=== PATIENT | female | born 1985 | race Caucasian/White ===

== ENCOUNTER 2018-02-07 06:08 | Inpatient (IN) | payer MEDICAID ==
[2018-02-07] MEDS ORDERED: REGLAN IV ONE (06:17)
[2018-02-07] MEDS ORDERED: PEPCID IV ONE (06:17)
[2018-02-07] MEDS ORDERED: BICITRA PO ONE (06:17)
[2018-02-07 06:48] LABS: Basophils % (Auto) 0.3 % (0.0-1.8); Eosinophils % (Auto) 0.4 % (0.0-4.3); Hemoglobin 12.9 gm/dl (10.1-14.3); Lymphocytes % (Auto) 21.9 % (13.4-35.0); Mean Corpuscular HGB Conc 33 % (30-34); Mean Corpuscular Hemoglobin 28 pg (28-32); Mean Corpuscular Volume 85 fl (79-97); Monocytes # (Auto) 0.6 K/mm3 (0.0-0.8); Monocytes % (Auto) 6.1 % (0.0-7.3); Platelet Count 242 K/mm3 (140-440); Red Blood Count 4.61 M/mm3 (3.65-5.03); Red Cell Distribution Width 15.7 % (13.2-15.2)
[2018-02-07] MEDS ORDERED: ANCEF/STERILE WATER 2 GM/20 ML 2 GM/20 ML SYRINGE IV NR (07:00)
[2018-02-07] MEDS ORDERED: PITOCin/NS 20 UNIT/1000ML DRIP 20 UNITS/1,000 ML BAG IV SCH ×2 (07:00→10:00)
[2018-02-07] MEDS ORDERED: LACTATED RINGERS 1,000 ML IV SCH (07:00)
[2018-02-07] MEDS ORDERED: SUBLIMAZE ONE (07:24)
[2018-02-07] MEDS ORDERED: NEO SYNEPHRINE/NS Syringe(OR USE) IV ONE (07:24)
[2018-02-07] MEDS ORDERED: LACTATED RINGERS 1,000 ML ONE (07:56)
--- NOTE | 2018-02-07 08:03 | History and Physical Report ---
History of Present Illness Date of examination: 02/07/18 Date of admission: 02/07/18 06:08 Chief complaint: Repeat C Section History of present illness: Pt is a 32yo WF EDC 02/10/18; EGA 39 4/7 weeks presents for a repeat C Section. She received care at [facility] since13 weeks and course has been unremarkable except for Obesity and previous C Section. records are available and GBS is Negative. Past History Past Medical History: no pertinent history Past Surgical History: section Family/Genetic History: diabetes Social history: no significant social history, - Obstetrical History Expected Date of Delivery: 02/10/18 Actual Gestation: 39 Week(s) 4 Day(s) : 3 Medications and Allergies Allergies Allergy/AdvReac Type Severity Reaction Status Date / Time No Known Allergies Allergy Unverified 02/07/18 06:17 Active Meds: Active Medications Cefazolin Sodium (Ancef/Sterile Water 2 Gm/20 Ml) 2 gm in 20 mls @ 80 mls/hr IV PREOP NR; Protocol Stop: 02/07/18 23:59 Lactated Ringer's (Lactated Ringers) 1,000 mls @ 2,250 mls/hr IV PREOP BALDEMAR Stop: 02/08/18 07:27 Oxytocin/Sodium Chloride (Pitocin/Ns 20 Unit/1000ml Drip) 20 units in 1,000 mls @ 0 mls/hr IV TITR BALDEMAR Review of Systems All systems: negative - Vital Signs Vital signs: Vital Signs Pulse BP 100 H 122/65 02/07/18 06:22 02/07/18 06:22 Temp Pulse Resp BP Pulse Ox 98.3 F 100 H 18 122/65 02/07/18 06:57 02/07/18 06:57 02/07/18 06:57 02/07/18 06:57 - Physical Exam Breasts: Positive: deferred Cardiovascular: Regular rate Lungs: Positive: Clear to auscultation Abdomen: Positive: normal appearance Genitourinary (Female): Positive: normal external genitalia Uterus: Positive: enlarged Extremities: Positive: normal - Obstetrical FHR: category 1 Uterine Contraction Monitor Mode: External Results Result Diagrams: 02/07/18 06:30 Abnormal lab results 02/07/18 Range/Units 06:30 RDW 15.7 H (13.2-15.2) % Seg Neutrophils % 71.3 H (40.0-70.0) % All other labs normal. Assessment and Plan - Patient Problems (1) 39 weeks gestation of Onset Date: 02/07/18 Current Visit: Yes Status: Acute Plan to address problem: A: IUP @ 39 4/7 weeks Previous C Section P: Admit to L&D for a Repeat C Section (2) Previous section Onset Date: 02/07/18 Current Visit: Yes Status: Acute
[2018-02-07] MEDS ORDERED: ZOFRAN ONE (08:20)
[2018-02-07] MEDS ORDERED: WATER FOR IRRIG STERILE IR ONE (08:30)
[2018-02-07] MEDS ORDERED: NACL 0.9% IR ONE (08:30)
[2018-02-07] MEDS ORDERED: MORPHINE ONE (09:04)
[2018-02-07] MEDS ORDERED: NARCAN 0.4 MG/1 ML IV PRN ×2 (09:13→09:36)
[2018-02-07] MEDS ORDERED: TUCKS PAD TP PRN (09:13)
[2018-02-07] MEDS ORDERED: MYLICON PO PRN (09:13)
[2018-02-07] MEDS ORDERED: ZOFRAN IV PRN (09:13)
[2018-02-07] MEDS ORDERED: SENOKOT PO PRN (09:13)
[2018-02-07] MEDS ORDERED: MILK OF MAGNESIA PO PRN (09:13)
[2018-02-07] MEDS ORDERED: LANSINOH TP PRN (09:13)
[2018-02-07] MEDS ORDERED: TORADOL IV PRN (09:13)
[2018-02-07] MEDS ORDERED: NORCO 5/325 PO PRN (09:13)
[2018-02-07] MEDS ORDERED: TYLENOL PO PRN (09:13)
[2018-02-07] MEDS ORDERED: NUBAIN IV PRN (09:36)
--- NOTE | 2018-02-07 09:36 | Anesthesia Day of Surgery ---
Anesthesia Day of Surgery - Day of Surgery Patient Examined: Yes Patient H&P Reviewed: Yes Patient is NPO: Yes
--- NOTE | 2018-02-07 09:36 | Anesthesia Consultation ---
Anesthesia Consult and Med Hx Date of service: 02/07/18 - Airway Anesthetic Teeth Evaluation: Good ROM Head & Neck: Adequate Mental/Hyoid Distance: Adequate Mallampati Class: Class III Intubation Access Assessment: Possibly Difficult - Pulmonary Exam CTA: Yes - Cardiac Exam Cardiac Exam: RRR - Pre-Operative Health Status ASA Pre-Surgery Classification: ASA2 Proposed Anesthetic Plan: Epidural, Spinal - Pulmonary Hx Smoking: No Hx Asthma: No Hx Respiratory Symptoms: No - Cardiovascular System Hx Hypertension: No Hx Heart Attack/AMI: No - Central Nervous System Hx Neuromuscular Disorder: No Hx Seizures: No CVA: No - Endocrine Hx Renal Disease: No Hx Liver Disease: No Hx Insulin Dependent Diabetes: No Hx Thyroid Disease: No - Other Systems Hx Obesity: Yes - Additional Comments Anesthesia Medical History Comments: Hx x1 scheduled for repeat c- section.
--- NOTE | 2018-02-07 09:52 | Operative Report ---
Operative Report Operative Report: Date of procedure: 02/07/2018 Pre-operative diagnosis: 1. Intrauterine at 39-4/7 weeks 2. Previous 3. Obesity Post-operative diagnosis: Same Procedure name(s): Repeat low transverse section Surgeon: Paul Chery MD Wool Mixer: None Anesthesia: Spinal anesthesia by Dr. Prather EBL: 500 mL's Findings: A 3586 g female infant Apgars 8 at 1 minute 9 at 5 minutes. Clear amniotic fluid. Normal uterus. Normal tubes and ovaries bilaterally. Procedure: After the patient was prepped and draped in usual sterile fashion, and after satisfactory level of epidural anesthesia was obtained, the skin knife was used to make a transverse skin incision through the previous skin scar. The incision was excised down to layer of the fascia, which was nicked in the midline and extended laterally using the Bovie cautery. The rectus muscles were dissected off the rectus fascia both superiorly and inferiorly. The rectus bellies in the midline, and the peritoneum was entered under direct visualization. The peritoneal incision was extended superiorly and inferiorly. A bladder flap was created and the bladder blade was then placed. The uterus was scored in a curvilinear linear fashion, entered in the midline revealing clear amniotic fluid. The infant's head was delivered onto the surgical field with the aid of a vacuum, and the oropharynx and nasopharynx were bulb suctioned. The rest of the infant's body was delivered, cord was doubly clamped and cut and the infant was handed to the waiting respiratory team. The placenta was manually removed from the uterus, and the uterus removed from its normal anatomical position. After gentle uterine lavage, the incision was inspected and found to be without extensions. It was then closed in 2 layers using 0 Vicryl suture in a running interlocking fashion, the second layer imbricating the first. After good hemostasis was achieved, copious amounts or irrigation was performed, and the gutters were suctioned free of blood and blood clots. The Tisseel sealant was sprayed across the uterine incision. The uterus was then returned to its normal anatomical position, and after excellent hemostasis assured, the peritoneum was re-approximated using 3- 0 Vicryl suture in a running interlocking fashion, and then the rectus muscles were re-approximated using 3-0 Vicryl suture in a [id number] configuration. The fascia was then re-approximated using 0 Vicryl suture in running interlocking fashion. The subcutaneous layer was made hemostatic using Bovie cautery, the Tisseel sealant was sprayed across the fascial incision and the skin edges re-approximated using 4-0 Vicryl suture in a sub-cuticular fashion. Patient tolerated the procedure well was transported to recovery in stable condition.
[2018-02-07] MEDS ORDERED: SODIUM CHLORIDE FLUSH SYRINGE 10 ML IV NR (10:00)
[2018-02-07] MEDS ORDERED: TYLENOL PO SCH (12:00)
[2018-02-07] MEDS ORDERED: BENADRYL IV PRN (12:27)
[2018-02-07] MEDS: TORADOL IV SCH ×2 (12:32→17:40)
[2018-02-07] MEDS: D5LR 1,000 ML IV SCH (17:50)
[2018-02-07] MEDS: ANCEF/NS 1 GM/50 ML 1 GM/50 ML BAG IV SCH (19:52)
[2018-02-07 21:53] LABS: Hematocrit 38.8 % (30.3-42.9); Hemoglobin 12.6 gm/dl (10.1-14.3)
[2018-02-08] MEDS: TORADOL IV SCH
[2018-02-08] MEDS: D5LR 1,000 ML IV SCH (01:06)
[2018-02-08] MEDS: ANCEF/NS 1 GM/50 ML 1 GM/50 ML BAG IV SCH (03:57)
[2018-02-08] MEDS ORDERED: M-M-R II VACCINE SUB-Q ONE (06:00)
[2018-02-08] MEDS ORDERED: BOOSTRIX IM ONE (06:00)
[2018-02-08] MEDS: PRENATAL VITAMIN PO SCH (08:21)
[2018-02-08] MEDS: FEOSOL PO SCH (08:21)
[2018-02-08] MEDS: MOTRIN PO PRN (08:22)
--- NOTE | 2018-02-08 13:53 | Progress Note ---
Assessment and Plan A: /postop day 1. Anemia. P: Encouraged ambulation. Continue iron supplementation. Subjective - Subjective Date of service: 02/08/18 Principal diagnosis: /postop day 1 Interval history: /postop day 1 S/P LTCS. Doing well. Patient reports she is voiding without difficulty and ambulating well. Passing flatus. Tolerating a regular diet without nausea or vomiting. Patient denies headache, visual disturbance, cough, shortness of breath, chest pain, dizziness, abdominal pain, leg pain, or heavy bleeding. Patient reports: appetite normal, voiding normally, pain well controlled, flatus , ambulating normally : doing well Objective - Vital Signs Latest vital signs: Vital Signs Temp Pulse Resp BP BP Pulse Ox 02/08/18 08:00 97 F L 95 H 18 106/60 02/08/18 04:45 91 H 18 106/56 02/08/18 00:42 98.5 F 75 18 103/56 96 02/08/18 00:00 16 02/07/18 20:40 98.1 F 84 22 101/59 89 02/07/18 17:40 20 02/07/18 15:04 98.1 F 94 H 18 105/54 Intake and Output 02/07/18 02/08/18 02/08/18 23:59 07:59 15:59 Intake Total 50 1208.333 Output Total 900 Balance 50 308.333 Intake: IV 50 908.333 ANCEF/NS 1 GM/50 ML 1 gm 50 In 50 ml @ 100 mls/hr IV Q8H BALDEMAR Rx#:[id number] D5lr 1,000 ml @ 125 mls/ 908.333 hr IV DIRECT BALDEMAR Rx#: [id number] Intake, Free Water 300 Output: Urine 900 Indwelling Catheter 900 Other: Total, Output Amount 900 # Voids Void 1 - Exam Cardiovascular: Present: Regular rate, Normal S1, Normal S2 Lungs: Present: Clear to auscultation Abdomen: Present: normal appearance, soft, normal bowel sounds. Absent: distention, tenderness, guarding Uterus: Present: normal, firm, fundal height below umbilicus. Absent: bogginess , tenderness Extremities: Present: normal. Absent: tenderness, edema Incision: Present: normal, dry, intact, dressed
[2018-02-08] MEDS: PERCOCET 5/325 PO PRN (15:52)
[2018-02-09] MEDS: PERCOCET 5/325 PO PRN ×2 (02:03→11:30)
[2018-02-09] MEDS: MOTRIN PO PRN ×3 (02:03→18:00)
[2018-02-09] MEDS: PRENATAL VITAMIN PO SCH (10:33)
[2018-02-09] MEDS: FEOSOL PO SCH (10:33)
[2018-02-09] MEDS ORDERED: BOOSTRIX IM ONE (12:00)
[2018-02-09 17:12] VITALS: BP 112/64
--- NOTE | 2018-02-09 19:09 | Progress Note ---
Assessment and Plan A: /postop day 2 S/P repeat LTCS. P: Discharge patient home today. Discussed discharge instructions and warning signs in detail with patient. Advised pt. to rest at home and avoid IC, avoid lifting and heavy housework, avoid driving. Advised pt. to follow up with Dr. Chery in 1 week. Advised pt. to continue to take vitamin and iron supplement at home. Pt. voiced understanding of all instructions. Subjective - Subjective Date of service: 02/09/18 Principal diagnosis: /postop day 2 Interval history: /postop day 2 S/P repeat LTCS. Doing well. Desires discharge today. Patient reports small amount of lochia. She is . She is undecided re: control. Patient reports she is voiding without difficulty and ambulating well. Passing flatus and had a BM. Tolerating a regular diet without nausea or vomiting. Patient denies headache, visual disturbance, cough, shortness of breath, chest pain, dizziness, abdominal pain, leg pain, or heavy bleeding. Patient reports: appetite normal, voiding normally, pain well controlled, flatus , ambulating normally : doing well Objective - Vital Signs Latest vital signs: Vital Signs Temp Pulse Resp BP 02/09/18 18:00 18 02/09/18 16:43 97.9 F 73 18 112/64 02/09/18 11:30 18 02/09/18 08:22 98.2 F 88 18 103/60 02/09/18 00:00 98.7 F 79 18 104/79 Intake and Output 02/09/18 02/09/18 02/09/18 07:59 15:59 23:59 Intake Total 300 Balance 300 Intake: Intake, Free Water 300 - Exam Cardiovascular: Present: Regular rate, Normal S1, Normal S2, No murmurs Lungs: Present: Clear to auscultation Abdomen: Present: normal appearance, soft, normal bowel sounds. Absent: distention, tenderness, guarding, rigidity Uterus: Present: normal, firm, fundal height below umbilicus. Absent: bogginess , tenderness Extremities: Present: normal. Absent: tenderness, edema Incision: Present: normal, dry, intact
--- NOTE | 2018-02-09 19:11 | Discharge Summary ---
Providers - Providers Date of Admission: 02/07/18 06:08 Date of discharge: 02/09/18 Attending physician: LANCE CORREIA None Primary care physician: LANCE CORREIA Hospitalization Reason for admission: section Delivery: Procedure: section Incision: normal, dry, intact Other procedures: none complications: none Discharge diagnosis: IUP at term delivered baby: female Pertinent studies: Labs Hospital course: Normal hospital course Condition at discharge: Good Disposition: DC-01 TO HOME OR SELFCARE - Discharge Diagnoses (1) Term delivered Status: Acute Plan - Discharge Medications Prescriptions: Ferrous Sulfate [Feosol 325 MG tab] 325 mg PO BID #60 tablet HYDROcodone/APAP 5-325 [[place] 5/325] 1 each PO Q6HR PRN #30 tablet PRN Reason: Pain Ibuprofen [Motrin] 800 mg PO Q8HR PRN #30 tablet PRN Reason: Moder Pain Unrelieved By [place] Vit Calc,Iron,Folic [ Vitamins] 1 each PO DAILY #30 tablet - Provider Discharge Summary Activity: routine, no sex for 6 weeks, no heavy lifting 4 weeks, no strenuous exercise Diet: routine Instructions: routine Additional instructions: Call your doctor immediately for: * Fever > 100.5 * Heavy vaginal bleeding ( >1 pad per hour) * Severe persistent headache * Shortness of breath * Reddened, hot, painful area to leg or breast * Drainage or odor from incision. * Keep incision clean and dry at all times and follow doctor's instructions regarding bathing/showering - Follow up plan Follow up: LANCE CORREIA MD [Primary Care Provider] - 7 Days
== END 2018-02-09 20:55 | disposition home or self-care (01) | DRG 765 ==
LOC: APU 06:08 → OB 11:38
PROVIDERS: ADMIT Obstetrics & Gynecology; ATTEND Obstetrics & Gynecology
PROC: 10D00Z1 Extraction of Products of Conception, Low, Open Approach (ICD-10-PCS; principal; 2018-02-07)
PROC: 3E0234Z Introduction of Serum, Toxoid and Vaccine into Muscle, Percutaneous Approach (ICD-10-PCS; 2018-02-09)
DX: O34.211 Maternal care for low transverse scar from previous cesarean delivery (principal); Z68.41 Body mass index [BMI] 40.0-44.9, adult; O99.214 Obesity complicating childbirth; E66.9 Obesity, unspecified; Z3A.39 39 weeks gestation of pregnancy; Z37.0 Single live birth; Z23 Encounter for immunization; O90.81 Anemia of the puerperium; D64.9 Anemia, unspecified
CPT/HCPCS: 36415; 85014; 85018; 85025; 86706; 86850; 86900; 86901; 90471; 90715; J0690; J1200; J1885; J2270; J2370; J2405; J2590; J2765; J3010; J7120; J7121